=== PATIENT | male | born 1965 | race Caucasian/White ===

== ENCOUNTER 2021-01-21 14:48 | Emergency (ER) | payer OTHER, SELFPAY ==
[2021-01-21 15:00] VITALS: BP 154/92; PULSE 63; RESP 16; TEMP 36.7; O2SAT 100
--- NOTE | 2021-01-21 15:02 | ED.GENADULT ---
HPI - General Adult General Chief complaint: Upper Respiratory Infection Stated complaint: fatigue/no appetite Time Seen by Provider: 01/21/21 15:18 Source: patient and RN notes reviewed Mode of arrival: ambulatory Limitations: no limitations History of Present Illness HPI narrative: 55-year-old male presents with concern for feeling poorly for 1 week. Reports he received his [employer] Covid vaccine last and since then has been having fatigue and poor appetite. He denies upper respiratory symptoms such as rhinorrhea, nasal congestion, cough, sore throat. Reports he took Tylenol yesterday with little relief. Reports he is trying to eat and drink adequately. Denies any known sick contacts. He denies body aches, chills, fever. Reports feeling clammy. MD complaint: Fatigue Related Data Allergies Allergy/AdvReac Type Severity Reaction Status Date / Time No Known Allergies Allergy Unknown Unverified 01/21/21 15:31 Review of Systems Review of Systems: CONSTITUTIONAL: Reports malaise, fatigue chills, sweats. Denies fever. EYES: Denies visual changes, redness, or discharge. ENT: Denies rhinorrhea, congestion, sinus pain, otalgia or sore throat. CARDIOVASCULAR: Denies chest pain, palpitations, or edema. RESPIRATORY: Denies cough or dyspnea. GASTROINTESTINAL: Denies abdominal pain, vomiting, diarrhea. Reports nausea and poor appetite MUSCULOSKELETAL: Denies myalgia. NEUROLOGIC: Denies headache. All systems reviewed & are unremarkable except as noted in HPI and below PMFSH Family History Family History (Updated 12/06/13 @ 07:13 by DOCTOR UNKNOWN) Sibling Family history of osteoarthritis Father Malignant neoplasm of prostate Grandparent Malignant neoplasm of prostate Family history of lupus erythematosus Social History Social History Smoking status: Never smoker Second hand tobacco smoke exposure: No Alcohol intake: current Comments At time of signature, agree with nursing past medical, surgical, social and family history. There is no relevant family history pertinent to the presenting complaint Exam Narrative: GENERAL: Well-appearing, well-nourished, and in no acute distress. HEAD: Normocephalic, atraumatic. EYES: PERRLA, sclera clear, and EOMI. No nystagmus. ENT: Nares clear. Mucous membranes moist. TM pearly valenzuela with sharp light reflex bilaterally; no tragal tenderness. Oropharynx without erythema or lesions. Tonsils not enlarged and without exudate. NECK: Supple. No lymphadenopathy. CHEST: No respiratory distress. Clear to auscultation. No bony deformities, no asymmetry. Speaks in full sentences. HEART: Regular rate and rhythm. No murmur heard. Normal peripheral pulses. SKIN: Warm, dry, no visible rash. NEURO: Alert and oriented x3. PSYCH: Normal mood and affect Course Course Emergency Course: Patient is aware of diagnosis, understands and agrees to treatment plan. Anticipatory guidance given. Patient agrees to follow-up as directed and is aware of reasons to seek care at the emergency department. Portions of this record may have been created with voice recognition software Vital Signs Vital signs: Vital Signs Temperature 98.1 F 01/21/21 15:00 Pulse Rate 63 01/21/21 15:00 Respiratory Rate 16 01/21/21 15:00 Blood Pressure 154/92 H 01/21/21 15:00 Pulse Oximetry 100 01/21/21 15:00 Temperature 98.1 F 01/21/21 15:00 Pulse Rate 63 01/21/21 15:00 Respiratory Rate 16 01/21/21 15:00 Blood Pressure 154/92 H 01/21/21 15:00 Pulse Oximetry 100 01/21/21 15:00 Reviewed. Medical Decision Making MDM Narrative Medical decision making narrative: Exam findings and imaging show no acute concerns or changes; patient is non-toxic appearing and is in no distress. Patient is appropriate for outpatient treatment and follow-up. Vital Signs Vital Signs: Vital Signs Temperature 98.1 F 01/21/21 15:00 Pulse Rate 63 01/21/21 15:00 Respiratory Rate 16 1
== END 2021-01-21 15:48 | disposition home or self-care (01) ==
PROVIDERS: Emergency Provider Nurse Practitioner
DX: R63.8 Other symptoms and signs concerning food and fluid intake (principal); R53.83 Other fatigue; Z20.822 Contact with and (suspected) exposure to COVID-19
CPT/HCPCS: 87426; 99213; C9803; G0463

== ENCOUNTER 2023-10-03 05:56 | Day surgery (SDC) | payer OTHER, SELFPAY ==
[2023-09-22 14:49] VITALS: BMI 27.1
[2023-10-03 06:07] VITALS: BMI 27.0
[2023-10-03 06:18] VITALS: BP 156/92; PULSE 60; RESP 18; TEMP 36.9; O2SAT 99
--- NOTE | 2023-10-03 06:41 | WPDANESEPPF ---
Anes - Initial Pre Proc Eval Procedure: Operation Date: 10/03/23 07:30 Proposed Procedures p Screening Colonoscopy - Alex Babin DO Date/Time: 10/03/23 06:41 Surgeon: Alex Babin DO Pre Op Diagnosis: Neoplasm Screening Patient Data Age: 57 Gender: M Height: 1.83 m Weight: 90.4 kg Last Vital Signs Temp 36.9 C 10/03/23 06:18 Pulse 60 10/03/23 06:18 Resp 18 10/03/23 06:18 BP 156/92 H 10/03/23 06:18 Pulse Ox 99 10/03/23 06:18 O2 Del Method Room Air 10/03/23 06:18 Allergies Allergy/AdvReac Type Severity Reaction Status Date / Time No Known Allergies Allergy Unknown Verified 10/03/23 06:10 Home Medications Medication Instructions Recorded Confirmed Type No Home Medications 09/22/23 10/03/23 History Patient hx anesthesia problems: none Family hx anesthesia problems: none Results Review: All pre-operative results and documents have been reviewed as part of the pre-operative evaluation. [facility] Past Medical History Medical History (Updated 07/27/23 @ 14:40 by Winston Marie, KELLER MACHINE OPERATOR) BMI 25.0-25.9,adult BMI 28.0-28.9,adult Decreased libido Fatigue Flu-like symptoms Screening for prostate cancer Sleep apnea Surgical History Surgical History Hx of hernia repair Family History Family History Sibling Family history of osteoarthritis Father Malignant neoplasm of prostate Myasthenia gravis Thyroid activity decreased Skin cancer Heart disease Pacemaker Grandparent Malignant neoplasm of prostate Family history of lupus erythematosus Mother Ovarian cancer Sibling Thyroid activity decreased Rheumatoid arthritis Social History Social History Smoking status: Never smoker Second hand tobacco smoke exposure: No Alcohol intake: never Substance use: current Substance use type: marijuana Other substance usage details: occasional Do You Feel Safe in your Home?: Yes Lack of Transportation: No Lack of Food: Never True Current Housing: I Have Housing Concerned About Future Housing: No Difficulty Paying Gas/Electric Bills: No Difficulty Paying for Meds: No Currently Unemployed: No Education: Master's Degree or Higher Difficulty w/ Childcare or Family Care: No Living arrangements: with family Occupation/Education: occupation Additional occupation/education comments: drug dealer Gender identity (if verbalized by the patient): Male Spiritual care concerns: No Anes - Eval Final PreProcedure Day of Procedure 10/03/23 06:41 Patient weight: overweight Heart: regular rate and rhythm Lungs: clear to auscultation Airway: Mallampati scale class II Neurological: alert and oriented Last oral intake: >/= 8 hours ASA classification: III Emergent: no Anesthetic plan: proceed Anesthesia type and monitoring: general GIVS and standard monitoring Results Review: All pre-operative results and documents have been reviewed as part of the pre-operative evaluation. Informed Consent: The patient's anesthetic plan and its attendant risks and benefits were discussed with the patient/family/POA. Questions were solicited and answers provided to the satisfaction of the patient/family/POA.
[2023-10-03] MEDS: LACTATED RINGERS 1,000 ML 150 ML IV CONT (06:56)
--- NOTE | 2023-10-03 07:34 | PM.IMHP ---
H&P: HPI History of Present Illness Date/Time: 10/03/23 07:34 Chief Complaint: Screening for colorectal cancer Narrative: this is a 57-year-old man who presents for colonoscopy. He has never had a colonoscopy before. He denies any hematochezia or melena denies any family history of colon cancer. Review of Systems Review of Systems: All systems reviewed & are unremarkable except as noted in HPI and below Constitutional: Constitutional: Denies chills, Denies fever(s), Denies headache(s) and Denies weight loss Eyes: Eyes: Denies change in vision ENT: Denies dizziness, Denies headache(s), Denies neck mass and Denies throat swelling Cardiovascular: Cardiovascular: Denies chest pain, Denies lightheadedness and Denies dyspnea Respiratory: Respiratory: Denies cough, Denies dyspnea and Denies wheezing Gastrointestinal: Gastrointestinal: Denies abdominal pain, Denies change in bowel habits, Denies nausea and Denies vomiting Genitourinary: Genitourinary: Denies hematuria and Denies dysuria Musculoskeletal: Musculoskeletal: Reports as per HPI Integumentary/Breasts: Skin/Breast: Reports as per HPI Neurologic: Denies dizziness and Denies headache(s) Allergic/Immunologic: Allergic/Immunologic: Denies throat swelling and Denies wheezing [facility] Past Medical History Medical History (Updated 10/03/23 @ 07:35 by Alex Babin DO) BMI 25.0-25.9,adult BMI 28.0-28.9,adult Decreased libido Fatigue Flu-like symptoms Screening for prostate cancer Sleep apnea Surgical History Surgical History Hx of hernia repair Family History Family History Sibling Family history of osteoarthritis Father Malignant neoplasm of prostate Myasthenia gravis Thyroid activity decreased Skin cancer Heart disease Pacemaker Grandparent Malignant neoplasm of prostate Family history of lupus erythematosus Mother Ovarian cancer Sibling Thyroid activity decreased Rheumatoid arthritis Social History Social History Smoking status: Never smoker Second hand tobacco smoke exposure: No Alcohol intake: never Substance use: current Substance use type: marijuana Other substance usage details: occasional Do You Feel Safe in your Home?: Yes Lack of Transportation: No Lack of Food: Never True Current Housing: I Have Housing Concerned About Future Housing: No Difficulty Paying Gas/Electric Bills: No Difficulty Paying for Meds: No Currently Unemployed: No Education: Master's Degree or Higher Difficulty w/ Childcare or Family Care: No Living arrangements: with family Occupation/Education: occupation Additional occupation/education comments: drug dealer Gender identity (if verbalized by the patient): Male Spiritual care concerns: No Meds Home Medications and Allergies Home Medications Medication Instructions Recorded Confirmed Type No Home Medications 09/22/23 10/03/23 History Allergies Allergy/AdvReac Type Severity Reaction Status Date / Time No Known Allergies Allergy Unknown Verified 10/03/23 06:10 Vital Signs Vital Signs - 24 hr 10/03/23 06:18 Temperature 36.9 C Pulse Rate 60 Respiratory Rate 18 Blood Pressure 156/92 H Pulse Oximetry 99 Oxygen Delivery Room Air Exam Const: General: no acute distress and alert Orientation/consciousness: patient oriented x3 HENMT: Head: normocephalic and atraumatic Ears: hearing grossly normal bilaterally Face/Nose/Sinus: Normal nares present Mouth: Yes Normal oral and palatal mucosa present Eyes: Periorbital: periorbital findings normal Sclera: sclerae normal EOM: EOMs intact bilaterally Neck: Neck: normal visual inspection, no lymphadenopathy and trachea midline Chest: Chest palpation & inspection: normal inspection of the chest Resp: Ef
[2023-10-03 08:09] VITALS: BP 126/78; PULSE 64; RESP 16; O2SAT 99
[2023-10-03 08:19] VITALS: BP 142/82; PULSE 56; RESP 16; O2SAT 99
[2023-10-03 08:29] VITALS: BP 165/95; PULSE 62; RESP 16; O2SAT 100
--- NOTE | 2023-10-03 10:42 | WPDANESPN ---
Anes - Prog Note Post-Op Date/Time: 10/03/23 10:42 Cardiovascular status: normal Respiratory status: normal Airway patency: baseline Mental status: baseline Post-Op hydration status: normal Vital Signs: Last Vital Signs Temp 36.9 C 10/03/23 06:18 Pulse 62 10/03/23 08:29 Resp 16 10/03/23 08:29 BP 165/95 H 10/03/23 08:29 Pulse Ox 100 10/03/23 08:29 O2 Del Method Room Air 10/03/23 08:29 Pain Score (VAS): 0 I/O: Intake & Output 10/02/23 10/03/23 10/03/23 23:59 07:59 15:59 Intake Total 750 Balance 750 Post-procedural complaints: none Patient Feedback: Patient satisfied with anesthetic care. Other Findings: Patient vital signs back to baseline. Patient denies nausea and vomiting. Patient's pain under control. Patient OK for discharge.
== END 2023-10-03 08:39 | disposition home or self-care (01) ==
PROVIDERS: PCP Family Medicine; Visit Provider Surgery
PROC: 0DJD8ZZ Inspection of Lower Intestinal Tract, Via Natural or Artificial Opening Endoscopic (ICD-10-PCS; CPT 45378; principal; 2023-10-03 07:30)
DX: Z12.11 Encounter for screening for malignant neoplasm of colon (principal); D12.8 Benign neoplasm of rectum
CPT/HCPCS: 45385; 45381

== ENCOUNTER 2023-10-03 10:18 | Outpatient (NON) | payer OTHER, SELFPAY | END 2023-10-03 10:19 | disposition home or self-care (01) | LOC: ANHLAB 10-04 10:20 | PROVIDERS: PCP Family Medicine; Visit Provider Surgery | DX: Z12.11 Encounter for screening for malignant neoplasm of colon (principal); Z12.12 Encounter for screening for malignant neoplasm of rectum | CPT/HCPCS: 88305 ==

== ENCOUNTER 2024-02-14 11:09 | Outpatient (CLI) | payer OTHER, SELFPAY ==
--- NOTE | ~2024-02-14 | XR_ITS ---
Right Hand Technique: PA, oblique, and lateral views were obtained. Clinical History: Injury Findings: No acute fracture or dislocation is seen. Osseous alignment is anatomic. Joint spaces are p reserved. Soft tissues are unremarkable. Impression: Unremarkable right hand. Reviewed, dictated and finalized at location M. YTICAL RESEARCH CHEMIST Impression: Unremarkable right hand.
== END 2024-02-14 11:10 | disposition home or self-care (01) ==
LOC: MICIMG 11:09
PROVIDERS: PCP Family Medicine; Visit Provider Nurse Practitioner Adult Health
DX: S69.91XA Unspecified injury of right wrist, hand and finger(s), initial encounter (principal); X58.XXXA Exposure to other specified factors, initial encounter; S69.90XA Unspecified injury of unspecified wrist, hand and finger(s), initial encounter
CPT/HCPCS: 73120

== ENCOUNTER 2024-04-22 09:36 | Outpatient (CLI) | payer OTHER, SELFPAY ==
--- NOTE | ~2024-04-22 | MR_ITS ---
EXAMINATION: MR hand RT wo con DATE: 04/22/2024 10:24 INDICATION: Pain and effusion at the third digit of the right hand. TECHNIQUE: Magnetic resonance imaging (MRI) of the right hand was performed without intravenous contr ast. The [id number] includes the distal metacarpals and the phalanges but excludes the carpus. Seq uences included sagittal, coronal, and axial T1-weighted FSE and T2-weighted FS FSE. COMPARISON: Radiograph dated 02/14/2024 FINDINGS: Bone alignment is normal. There are few scattered low signal intensity bone islands with correspondin g sclerosis on prior radiographs. Marrow signal is otherwise unremarkable with no reactive edema, fra cture or pathologic marrow replacing process. 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 Remaining joint spaces appear relatively preserved. No erosions to suggest inflammatory arthritis. M ild increased fluid in the third flexor tendon sheath consistent with mild tenosynovitis. Mild fusifo rm thickening of the flexor tendons to the third digit at the level of the proximal phalanx with line ar increased signal extending sagittally oriented direction along the distal portion of the flexor di gitorum profundus tendon beginning at the level of the proximal metaphyseal region of the proximal ph alanx and extending distally to the ribs insertion at the base of the distal phalanx. There is thicke marielena of the A2 grant of the third digit along the palmar margin of the flexor tendons at the level o f the proximal third of the proximal phalanx. There appears to be slight increased separation of the flexor tendons from the palmar margin of the bone at the neck the proximal phalanx where separation m easures approximately 4 mm. This suggests likely partial tear of the distal portion of the A2 grant. The remaining flexor tendons is also visualized portion of the extensor tendons appear normal. The c ollateral ligament complex at the metacarpophalangeal and interphalangeal joints appear normal. IMPRESSION: 1. Likely partial tear of the distal portion of the A2 grant of the third digit with corresponding m ild flexor tenosynovitis and mild tendinopathy and longitudinal split tear of the flexor digitorum pr ofundus tendon of the third digit. Reviewed, dictated and finalized at location B. IER ASSISTANT IMPRESSION: 1. Likely partial tear of the distal portion of the A2 grant of the third digi t with corresponding mild flexor tenosynovitis and mild tendinopathy and longit udinal split tear of the flexor digitorum profundus tendon of the third digit.
== END 2024-04-22 09:37 | disposition home or self-care (01) ==
PROVIDERS: PCP Family Medicine; Visit Provider Nurse Practitioner Adult Health
DX: M25.441 Effusion, right hand (principal); S69.90XA Unspecified injury of unspecified wrist, hand and finger(s), initial encounter; X58.XXXA Exposure to other specified factors, initial encounter
CPT/HCPCS: 73218